=== PATIENT | male | born 1970 | race African-American/Black ===

== ENCOUNTER 2016-12-08 20:48 | Observation (INO) | payer OTHER ==
[~2016-12-08] VITALS: Ht 177.8 cm; Wt 82.6 kg
[~2016-12-08 20:48] MED LIST: AMLO5TAB2 PO; CHLO25TA PO; LACT1CAP6 PO; SIMV20TA3 PO
--- NOTE | 2016-12-08 22:36 | PHYS DOC ---
Past Medical History Past Medical History: Diverticulitis, Hypertension, Unknown Additional Past Medical Histor: Peptic ulcer Past Surgical History: Appendectomy, Other Additional Past Surgical Histo: LUMPECTOMY Alcohol Use: Heavy Drug Use: None Adult General Chief Complaint Chief Complaint: RECTAL BLEED HPI HPI Patient is a 46 year old male who presents with bleeding per rectum. Patient reports for the past 2 weeks he has had blood from his rectum 7 or 8 times per day. Has had a history of same in the past. He does have history of hemorrhoids , but says his bleeding is much more than his around from hemorrhoids. He reports generalized abdominal pain as well as "pain everywhere" related to osteoarthritis in "every joint". He has not taken anything for pain. Of note, he has been hypokalemic recently and says he is up-to-date in 3 potassium per day. Review of Systems Review of Systems Constitutional: Denies fever or chills Eyes: Denies change in visual acuity or eye pain HENT: Denies nasal congestion or sore throat Respiratory: Denies cough or shortness of breath Cardiovascular: Denies chest pain GI: Generalized abdominal pain, blood per rectum. Denies nausea, vomiting, diarrhea : Denies dysuria or hematuria Musculoskeletal: Pain in all joints Integument: Denies rash or skin lesions Neurologic: Denies headache, focal weakness or sensory changes Current Medications Current Medications Current Medications Medications (Trade) Dose Ordered Sig/Kimberli Start Time Stop Time Status Last Admin Dose Admin Famotidine (Pepcid) 20 mg 1X ONCE 12/08/16 23:00 12/08/16 23:01 DC 12/08/16 23:07 20 MG Morphine Sulfate 4 mg 1X ONCE 12/08/16 23:00 12/08/16 23:01 DC 12/08/16 23:08 4 MG Potassium Chloride (Klor-Con) 40 meq 1X ONCE 12/09/16 00:00 12/09/16 00:01 DC 12/09/16 01:37 40 MEQ Allergies Allergies Allergies Coded Allergies Type Severity Reaction Last Updated Verified adhesive Allergy Intermediate RASH 07/14/16 Yes coconut Allergy Intermediate RASH 07/14/16 Yes Physical Exam Physical Exam Constitutional: Well developed, well nourished, no acute distress, non-toxic appearance HENT: Normocephalic, atraumatic, bilateral external ears normal Eyes: EOMI, conjunctiva normal, no discharge Neck: Normal range of motion, no stridor Cardiovascular: Heart rate normal, regular rhythm, no murmur Lungs & Thorax: Bilateral breath sounds clear to auscultation Abdomen: Bowel sounds normal, soft, non-distended, mild generalized TTP without guarding or rebound Rectal: External hemorrhoid, no gross blood Skin: Warm, dry, no erythema, no rash Extremities: No obvious deformity, no edema Neurologic: Alert and oriented X 3, no gross deficits noted Current Patient Data Vital Signs Vital Signs Date Time Temp Pulse Resp B/P Pulse Ox O2 Delivery O2 Flow Rate FiO2 12/09/16 00:31 92 16 127/77 100 Room Air 12/08/16 21:00 98.4 98.4 Lab Values Laboratory Tests Test 12/08/16 22:05 12/08/16 23:00 12/09/16 00:01 Urine Collection Type Unknown Urine Color Yellow Urine Clarity Clear Urine pH 5.5 Urine Specific [place] 1.010 Urine Protein Negativemg/dL (NEG-TRACE) Urine Glucose (UA) Negativemg/dL (NEG) Urine Ketones (Stick) Negativemg/dL (NEG) Urine Blood Negative (NEG) Urine Nitrite Negative (NEG) Urine Bilirubin Negative (NEG) Urine Urobilinogen Dipstick 0.2mg/dL (0.2 mg/dL) Urine Leukocyte Esterase Negative (NEG) Urine RBC 0/HPF (0-2) Urine WBC 0/HPF (0-4) Urine Squamous Epithelial Cells Occ/LPF Urine Bacteria 0/HPF (0-FEW) Urine Mucus Slight/LPF Urine Opiates Screen Neg (NEG) Urine Methadone Screen Neg (NEG) Urine Barbiturates Neg (NEG) Urine Phencyclidine Screen Neg (NEG) Urine Amphetamine/Methamphetamine Neg (NEG) Urine Benzodiazepines Screen Neg (NEG) Urine Cocaine Screen Neg (NEG) Urine Cannabinoids Screen Neg (NEG) Urine Ethyl Alcohol Pos (NEG) White Blood Count 6.1x10^3/uL (4.0-11.0) Red Blood Count 4.06x10^6/uL (4.30-5.70) L Hemoglobin 11.1g/dL (13.0-17.5) L Hematocrit 33.4% (39.0-53.0) L Mean Corpuscular Volume 82fL (79-100) Mean Corpuscular Hemoglobin 28pg (25-35) Mean Corpuscular Hemoglobin Concent 33g/dL (31-37) Red Cell Distribution Width 14.1% (11.5-14.5) Platelet Count 291x10^3/uL (140-400) Neutrophils (%) (Auto) 41% (31-73) Lymphocytes (%) (Auto) 50% (24-48) H Monocytes (%) (Auto) 7% (0-9) Eosinophils (%) (Auto) 2% (0-3) Basophils (%) (Auto) 1% (0-3) Neutrophils # (Auto) 2.5x10^3uL (1.8-7.7) Lymphocytes # (Auto) 3.0x10^3/uL (1.0-4.8) Monocytes # (Auto) 0.4x10^3/uL (0.0-1.1) Eosinophils # (Auto) 0.1x10^3/uL (0.0-0.7) Basophils # (Auto) 0.1x10^3/uL (0.0-0.2) Sodium Level 139mmol/L (136-145) Potassium Level 2.8mmol/L (3.5-5.1) *L Chloride Level 98mmol/L (98-107) Carbon Dioxide Level 28mmol/L (21-32) Anion Gap 13 (6-14) Blood Urea Nitrogen 18mg/dL (8-26) Creatinine 1.0mg/dL (0.7-1.3) Estimated GFR (Cockcroft-Gault) 97.3 BUN/Creatinine Ratio 18 (6-20) Glucose Level 110mg/dL (70-99) H Calcium Level 8.8mg/dL (8.5-10.1) Magnesium Level 1.9mg/dL (1.8-2.4) Total Bilirubin 0.3mg/dL (0.2-1.0) Aspartate Amino Transferase (AST) 30U/L (15-37) Alanine Aminotransferase (ALT) 26U/L (16-63) Alkaline Phosphatase 42U/L (46-116) L Total Protein 7.4g/dL (6.4-8.2) Albumin 3.6g/dL (3.4-5.0) Albumin/Globulin Ratio 0.9 (1.0-1.7) L Lipase 245U/L (73-393) Ethyl Alcohol Level 152mg/dL (0-10) H Stool Occult Blood Positive (NEG) Laboratory Tests 12/08/16 23:00 Laboratory Tests 12/08/16 23:00 EKG EKG [] Radiology/Procedures Radiology/Procedures [] Course & Med Decision Making Course & Med Decision Making Pertinent Labs and Imaging studies reviewed. (See chart for details) Patient is 46-year-old male who presents with blood per rectum and pain all over. Has history of colon polyps, this may be the source of bleeding. Will check labs, UA. Pepcid and pain medicine ordered. Labs notable for anemia; hemoglobin 11.1, this is concerning because patient's baseline is around 15. Also noted to be hypokalemic. Oral potassium replacement ordered. Discussed results with patient. Discussed Dr. Black, will admit under his care for further evaluation treatment. Dragon Disclaimer Dragon Disclaimer This electronic medical record was generated, in whole or in part, using a voice recognition dictation system. Departure Departure Impression: Primary Impression: GI bleed Additional Impression: Hypokalemia Disposition: ADMITTED INPATIENT Admitting Physician: Anibal Black Condition: STABLE Referrals: ROMAIN GARRISON MD (PCP) Problem Qualifiers MELISSA LEON MD Dec 08, 2016 22:36
[2016-12-08 22:49] LABS: BILIRUBIN,URINE NEGATIVE (NEG); GLUCOSE,URINE NEGATIVE (NEG); NITRITE,URINE NEGATIVE (NEG); PH,URINE 5.5; PROTEIN,URINE NEGATIVE (NEG-TRACE); UROBILINOGEN,URINE 0.2 mg/dL (0.2 mg/dL)
[2016-12-08 22:54] LABS: BARBITURATES NEG (NEG); BENZODIAZEPINES NEG (NEG); CANNABINOIDS NEG (NEG); COCAINE NEG (NEG); METHADONE NEG (NEG); OPIATES NEG (NEG); PHENCYCLIDINE NEG (NEG)
[2016-12-08 22:55] LABS: ETHANOL, URINE POS (NEG)
[2016-12-08 22:58] LABS: BACTERIA,URINE 0 /HPF (0-FEW); RBC,URINE 0 /HPF (0-2); SQUAMOUS EPITHELIAL CELL,UR OCC /LPF; WBC,URINE 0 /HPF (0-4)
[2016-12-08] MEDS ORDERED: MORPHINE SULFATE 4 MG/ML DISP.SYRIN. IV ONE (23:00)
[2016-12-08] MEDS ORDERED: FAMOTIDINE 20 MG/2 ML VIAL IVP ONE (23:00)
[2016-12-08 23:15] LABS: BASO # 0.1 x10^3/uL (0.0-0.2); BASO % 1 % (0-3); EOS % 2 % (0-3); HEMATOCRIT 33.4 % (39.0-53.0); HEMOGLOBIN 11.1 g/dL (13.0-17.5); LYMPH % 50 % (24-48); MEAN CORPUSCULAR HEMOGLOBIN 28 pg (25-35); MEAN CORPUSCULAR HGB CONC 33 g/dL (31-37); MEAN CORPUSCULAR VOLUME 82 fL (79-100); MONO % 7 % (0-9); NEUT % 41 % (31-73); PLATELET COUNT 291 x10^3/uL (140-400); RED BLOOD COUNT 4.06 x10^6/uL (4.30-5.70); RED CELL DISTRIBUTION WIDTH 14.1 % (11.5-14.5); WHITE BLOOD COUNT 6.1 x10^3/uL (4.0-11.0)
[2016-12-08 23:32] LABS: ALBUMIN 3.6 g/dL (3.4-5.0); ALBUMIN/GLOBULIN RATIO 0.9 (1.0-1.7); CALCIUM 8.8 mg/dL (8.5-10.1); GFR 97.3; TOTAL BILIRUBIN 0.3 mg/dL (0.2-1.0); TOTAL PROTEIN 7.4 g/dL (6.4-8.2)
[2016-12-08 23:35] LABS: POTASSIUM 2.8 mmol/L (3.5-5.1)
[2016-12-09] VITALS (11 sets, daily range): BP systolic 112–155; BP diastolic 71–92
[2016-12-09] MEDS ORDERED: ONDANSETRON PF 4 MG/2 ML VIAL. IV PRN (00:45)
[2016-12-09] MEDS ORDERED: ACETAMINOPHEN 325 MG TABLET. PO PRN (00:45)
[2016-12-09 01:03] LABS: NEG OBC FOB NEG; POS OBC FOB POS
[2016-12-09] MEDS ORDERED: POTA10TA PO (03:27)
[2016-12-09] MEDS ORDERED: AMLO10TA2 PO (03:27)
[2016-12-09] MEDS ORDERED: ESCI20TA PO (03:27)
[2016-12-09] MEDS: MORPHINE SULFATE 2 MG/ML DISP.SYRIN. IV PRN ×4 (03:38→19:35)
--- NOTE | 2016-12-09 09:01 | EKG ---
[facility] [address] [place] [address] Test Date: 2016-12-09 Test Time: 08:20:22 Pat Name: SARAH CIFUENTES Department: Room: 526 1 Gender: M Laboratory Analyst: RITA : 1970 Requested By: BILL AMOR Order Number: [id number] Reading MD: Clarissa Rich Measurements Intervals [place] Rate: 82 P: 59 UT: 150 QRS: -4 QRSD: 94 T: -1 QT: 400 QTc: 471 Interpretive Statements SINUS RHYTHM LEFTWARD AXIS OTHERWISE NORMAL ECG RI6.01 Compared to ECG 07/15/2016 15:30:12 T-wave abnormality no longer present Electronically Signed On 12-10-2016 10:35:52 FISH SEINER by Clarissa Rich
--- NOTE | 2016-12-09 09:16 | PDOC2 ---
GI CONSULT Reason For Consult: GI Bleed HPI: HPI: 46 y/o AA male w/ ~16 year h/o GI bleeding w/ previous evaluation at [facility] in [place]. He reports significant h/o colon polyps w/ annual colonoscopy recommended (w/ last colonoscopy 1-2 years ago). Additionally, he has h/o PUD w / H. pylori (reports treated after last EGD 1-2 years ago), diverticulosis, and hemorrhoids. He has also had SBCE and has been advised to take iron in the past. He notes blood in his stools daily (rarely bright red, usually darker); this has been worse for 2 weeks. His reports stools look like grape juice w/ large clots. He often feels dizzty and weak when this occurs. Before passing blood, he has epigastric and BLQ discomfort w/ bloating. Denies GERD, dysphagia, n/v, hematemesis, unintentional weight loss, change in appetite, constipation, diarrhea, and NSAID use. Labs as an outpatient have reportedly shown dropping Hgb during this time. Here, labs show Hgb 11.1, K+ 2.8, Alk Phos 42, ethyl alcohol 152, and hemoccult positive stool. PMH: PMH: HTN, diverticulosis, hemorrhoids, PUD, appendectomy, benign cyst removal from left chest FH: Family History: No pertinent hx (denies GI cancers), CAD, CVA, DM Social History: Smoke: <1 pack per day ALCOHOL: other (4 "tall boy" cans of beer QOD) Drugs: None ROS: GEN: Denies fevers, chills, sweats HEENT: Denies blurred vision, sore throat CV: Denies chest pain RESP: Denies shortness of air, cough GI: Per HPI : Denies hematuria, dysuria ENDO: +weight loss (intentional) NEURO: +dizziness MSK: +weakness SKIN: Denies jaundice, pruritus VItals: Vitals: Vital Signs Date Time Temp Pulse Resp B/P Pulse Ox O2 Delivery O2 Flow Rate FiO2 12/09/16 08:52 20 95 Room Air 12/09/16 07:00 98.6 88 117/73 98.6 Labs: Labs: Laboratory Tests Test 12/08/16 22:05 12/08/16 23:00 12/09/16 00:01 Urine Collection Type Unknown Urine Color Yellow Urine Clarity Clear Urine pH 5.5 Urine Specific [place] 1.010 Urine Protein Negativemg/dL (NEG-TRACE) Urine Glucose (UA) Negativemg/dL (NEG) Urine Ketones (Stick) Negativemg/dL (NEG) Urine Blood Negative (NEG) Urine Nitrite Negative (NEG) Urine Bilirubin Negative (NEG) Urine Urobilinogen Dipstick 0.2mg/dL (0.2 mg/dL) Urine Leukocyte Esterase Negative (NEG) Urine RBC 0/HPF (0-2) Urine WBC 0/HPF (0-4) Urine Squamous Epithelial Cells Occ/LPF Urine Bacteria 0/HPF (0-FEW) Urine Mucus Slight/LPF Urine Opiates Screen Neg (NEG) Urine Methadone Screen Neg (NEG) Urine Barbiturates Neg (NEG) Urine Phencyclidine Screen Neg (NEG) Urine Amphetamine/Methamphetamine Neg (NEG) Urine Benzodiazepines Screen Neg (NEG) Urine Cocaine Screen Neg (NEG) Urine Cannabinoids Screen Neg (NEG) Urine Ethyl Alcohol Pos (NEG) White Blood Count 6.1x10^3/uL (4.0-11.0) Red Blood Count 4.06x10^6/uL (4.30-5.70) Hemoglobin 11.1g/dL (13.0-17.5) Hematocrit 33.4% (39.0-53.0) Mean Corpuscular Volume 82fL (79-100) Mean Corpuscular Hemoglobin 28pg (25-35) Mean Corpuscular Hemoglobin Concent 33g/dL (31-37) Red Cell Distribution Width 14.1% (11.5-14.5) Platelet Count 291x10^3/uL (140-400) Neutrophils (%) (Auto) 41% (31-73) Lymphocytes (%) (Auto) 50% (24-48) Monocytes (%) (Auto) 7% (0-9) Eosinophils (%) (Auto) 2% (0-3) Basophils (%) (Auto) 1% (0-3) Neutrophils # (Auto) 2.5x10^3uL (1.8-7.7) Lymphocytes # (Auto) 3.0x10^3/uL (1.0-4.8) Monocytes # (Auto) 0.4x10^3/uL (0.0-1.1) Eosinophils # (Auto) 0.1x10^3/uL (0.0-0.7) Basophils # (Auto) 0.1x10^3/uL (0.0-0.2) Sodium Level 139mmol/L (136-145) Potassium Level 2.8mmol/L (3.5-5.1) Chloride Level 98mmol/L (98-107) Carbon Dioxide Level 28mmol/L (21-32) Anion Gap 13 (6-14) Blood Urea Nitrogen 18mg/dL (8-26) Creatinine 1.0mg/dL (0.7-1.3) Estimated GFR (Cockcroft-Gault) 97.3 BUN/Creatinine Ratio 18 (6-20) Glucose Level 110mg/dL (70-99) Calcium Level 8.8mg/dL (8.5-10.1) Magnesium Level 1.9mg/dL (1.8-2.4) Total Bilirubin 0.3mg/dL (0.2-1.0) Aspartate Amino Transf (AST/SGOT) 30U/L (15-37) Alanine Aminotransferase (ALT/SGPT) 26U/L (16-63) Alkaline Phosphatase 42U/L (46-116) Total Protein 7.4g/dL (6.4-8.2) Albumin 3.6g/dL (3.4-5.0) Albumin/Globulin Ratio 0.9 (1.0-1.7) Lipase 245U/L (73-393) Ethyl Alcohol Level 152mg/dL (0-10) Stool Occult Blood Positive (NEG) Allergies: Coded Allergies: adhesive (Verified Allergy, Intermediate, RASH, 07/14/16) coconut (Verified Allergy, Intermediate, RASH, 07/14/16) Medications: Current Medications Medications (Trade) Dose Ordered Sig/Kimberli Route PRN Reason Start Time Stop Time Status Last Admin Dose Admin Famotidine (Pepcid) 20 mg 1X ONCE IVP 12/08/16 23:00 12/08/16 23:01 DC 12/08/16 23:07 Morphine Sulfate 4 mg 1X ONCE IV 12/08/16 23:00 12/08/16 23:01 DC 12/08/16 23:08 Potassium Chloride (Klor-Con) 40 meq 1X ONCE PO 12/09/16 00:00 12/09/16 00:01 DC 12/09/16 01:37 Morphine Sulfate 2 mg PRN Q2HR PRN IV SEVERE PAIN 12/09/16 00:45 12/10/16 00:44 12/09/16 08:52 Imaging: Imaging: - PE: GEN: NAD HEENT: Atraumatic, PERRL LUNGS: CTAB anteriorly HEART: RRR ABD: NABS, S/N, mild epigastric and BLQ discomfort EXTREMITY: No edema SKIN: No rashes, no jaundice NEURO/PSYCH: A & O 3 A/P: A/P: Recurrent GI bleeding -h/o for many years w/ previous eval through [facility] in [place] (EGD, colonoscopy, SBCE) -reports daily bleeding w/ worsening symptoms x 2 weeks -passes "grape juice" colored blood w/ clots H/o PUD, H. pylori -last EGD 1-2 years ago -no maintenance therapy, denies GERD symptoms, no NSAID use H/o colon polyps -apparently annual colonoscopy recommended H/o alcohol use -elevated ethyl alcohol on admission Abd discomfort, bloating -- D/w Dr. Hussein - plan for EGD this afternoon r/o upper GI source w/ possible colonoscopy after prep tomorrow if unrevealing. Will make NPO and also start PPI. EDILMA WHALEN Dec 09, 2016 09:16
[2016-12-09] MEDS ORDERED: MAGNESIUM SULFATE 4GM 100 ML IV ONE (09:30)
[2016-12-09] MEDS ORDERED: POTASSIUM CHLORIDE 20 MEQ TABLET.ER. PO ONE ×2 (09:30)
--- NOTE | 2016-12-09 09:34 | PDOC1 ---
History and Physical Date of Admission Date of Admission DATE: 12/09/16 TIME: 09:30 Identification/Chief Complaint Chief Complaint blood in stool Source Source: Chart review, Patient History of Present Illness History of Present Illness Mr. Foster, is a 46 year old male who presents with bleeding per rectum. Multiple large stools, w/ blood water looks "like grape juice" blood mixed with stool, some clots no melena, no sticky, not black or darker, blood is red per report, but also reports purple color. Symtoms for 2 weeks up to 8 times per day. Has had a history of same in the past and prior polyps and hemorrhoids, He has diffuse OA pain, neck shoulders, chest. pain 5./ Past Medical History Cardiovascular: HTN Pulmonary: No pertinent hx CENTRAL NERVOUS SYSTEM: Other GI: Diverticulosis, GI bleed Heme/Onc: No pertinent hx Hepatobiliary: No pertinent hx Psych: No pertinent hx Musculoskeletal: Other Rheumatologic: No pertinent hx Infectious disease: No pertinent hx Renal/: No pertinent hx Endocrine: No pertinent hx Past Surgical History Past Surgical History: Appendectomy, Other Family History Family History: Coronary Artery Disease, Diabetes, Stroke Social History Smoke: <1 pack per day ALCOHOL: other (4 "tall boy" cans of beer QOD) Drugs: None Current Problem List Problem List Problems Medical Problems: (1) GI bleed Status: Acute (2) Hypokalemia Status: Acute Problems: Current Medications Current Medications Current Medications Famotidine (Pepcid) 20 mg 1X ONCE IVP Last administered on 12/08/16 23:07; Start 12/08/16 at 23:00; Stop 12/08/16 at 23:01; Status DC Morphine Sulfate 4 mg 1X ONCE IV Last administered on 12/08/16 23:08; Start at 23:00; Stop 12/08/16 at 23:01; Status DC Potassium Chloride (Klor-Con) 40 meq 1X ONCE PO Last administered on 12/09/16 01:37; Start 12/09/16 at 00:00; Stop 12/09/16 at 00:01; Status DC Ondansetron HCl (Zofran) 4 mg PRN Q8HRS PRN IV NAUSEA/VOMITING; Start 12/09/16 at 00:45; Stop 12/10/16 at 00:44 Morphine Sulfate 2 mg PRN Q2HR PRN IV SEVERE PAIN Last administered on t 08:52; Start 12/09/16 at 00:45; Stop 12/10/16 at 00:44 Acetaminophen (Tylenol) 650 mg PRN Q4HRS PRN PO FEVER; Start 12/09/16 at 00:45; Stop 12/10/16 at 00:44 Active Scripts Active Simvastatin 20 Mg Tablet 1 Tab PO QHS Reported K-Tab (Potassium Chloride) 10 Meq Tablet.er 30 Meq PO DAILY Escitalopram Oxalate 20 Mg Tablet 20 Mg PO DAILY Amlodipine Besylate 10 Mg Tablet 10 Mg PO DAILY Probiotic (Lactobacillus Acidophilus) 1 Each Capsule 1 Each PO DAILY Chlorthalidone 25 Mg Tablet 50 Mg PO DAILY Allergies Allergies: Coded Allergies: adhesive (Verified Allergy, Intermediate, RASH, 07/14/16) coconut (Verified Allergy, Intermediate, RASH, 07/14/16) Physical Exam General: Alert, Oriented X3, Cooperative, No acute distress HEENT: Atraumatic, EOMI, Mucous membr. moist/pink Lungs: Clear to auscultation, Normal air movement Heart: no gallops, no murmurs Abdomen: Normal bowel sounds, Soft Rectal Exam: not examined Extremities: No clubbing, No cyanosis, No edema, Normal pulses Skin: No significant lesion Neuro: Normal tone Psych/Mental Status: Mental status NL Vitals Vitals Vital Signs Date Time Temp Pulse Resp B/P Pulse Ox O2 Delivery O2 Flow Rate FiO2 12/09/16 08:52 20 95 Room Air 12/09/16 07:00 98.6 88 117/73 98.6 Labs Labs Laboratory Tests Test 12/08/16 22:05 12/08/16 23:00 12/09/16 00:01 Urine Collection Type Unknown Urine Color Yellow Urine Clarity Clear Urine pH 5.5 Urine Specific [place] 1.010 Urine Protein Negativemg/dL (NEG-TRACE) Urine Glucose (UA) Negativemg/dL (NEG) Urine Ketones (Stick) Negativemg/dL (NEG) Urine Blood Negative (NEG) Urine Nitrite Negative (NEG) Urine Bilirubin Negative (NEG) Urine Urobilinogen Dipstick 0.2mg/dL (0.2 mg/dL) Urine Leukocyte Esterase Negative (NEG) Urine RBC 0/HPF (0-2) Urine WBC 0/HPF (0-4) Urine Squamous Epithelial Cells Occ/LPF Urine Bacteria 0/HPF (0-FEW) Urine Mucus Slight/LPF Urine Opiates Screen Neg (NEG) Urine Methadone Screen Neg (NEG) Urine Barbiturates Neg (NEG) Urine Phencyclidine Screen Neg (NEG) Urine Amphetamine/Methamphetamine Neg (NEG) Urine Benzodiazepines Screen Neg (NEG) Urine Cocaine Screen Neg (NEG) Urine Cannabinoids Screen Neg (NEG) Urine Ethyl Alcohol Pos (NEG) White Blood Count 6.1x10^3/uL (4.0-11.0) Red Blood Count 4.06x10^6/uL (4.30-5.70) Hemoglobin 11.1g/dL (13.0-17.5) Hematocrit 33.4% (39.0-53.0) Mean Corpuscular Volume 82fL (79-100) Mean Corpuscular Hemoglobin 28pg (25-35) Mean Corpuscular Hemoglobin Concent 33g/dL (31-37) Red Cell Distribution Width 14.1% (11.5-14.5) Platelet Count 291x10^3/uL (140-400) Neutrophils (%) (Auto) 41% (31-73) Lymphocytes (%) (Auto) 50% (24-48) Monocytes (%) (Auto) 7% (0-9) Eosinophils (%) (Auto) 2% (0-3) Basophils (%) (Auto) 1% (0-3) Neutrophils # (Auto) 2.5x10^3uL (1.8-7.7) Lymphocytes # (Auto) 3.0x10^3/uL (1.0-4.8) Monocytes # (Auto) 0.4x10^3/uL (0.0-1.1) Eosinophils # (Auto) 0.1x10^3/uL (0.0-0.7) Basophils # (Auto) 0.1x10^3/uL (0.0-0.2) Sodium Level 139mmol/L (136-145) Potassium Level 2.8mmol/L (3.5-5.1) Chloride Level 98mmol/L (98-107) Carbon Dioxide Level 28mmol/L (21-32) Anion Gap 13 (6-14) Blood Urea Nitrogen 18mg/dL (8-26) Creatinine 1.0mg/dL (0.7-1.3) Estimated GFR (Cockcroft-Gault) 97.3 BUN/Creatinine Ratio 18 (6-20) Glucose Level 110mg/dL (70-99) Calcium Level 8.8mg/dL (8.5-10.1) Magnesium Level 1.9mg/dL (1.8-2.4) Total Bilirubin 0.3mg/dL (0.2-1.0) Aspartate Amino Transf (AST/SGOT) 30U/L (15-37) Alanine Aminotransferase (ALT/SGPT) 26U/L (16-63) Alkaline Phosphatase 42U/L (46-116) Total Protein 7.4g/dL (6.4-8.2) Albumin 3.6g/dL (3.4-5.0) Albumin/Globulin Ratio 0.9 (1.0-1.7) Lipase 245U/L (73-393) Ethyl Alcohol Level 152mg/dL (0-10) Stool Occult Blood Positive (NEG) Laboratory Tests Test 12/08/16 22:05 12/08/16 23:00 12/09/16 00:01 Urine Collection Type Unknown Urine Color Yellow Urine Clarity Clear Urine pH 5.5 Urine Specific [place] 1.010 Urine Protein Negativemg/dL (NEG-TRACE) Urine Glucose (UA) Negativemg/dL (NEG) Urine Ketones (Stick) Negativemg/dL (NEG) Urine Blood Negative (NEG) Urine Nitrite Negative (NEG) Urine Bilirubin Negative (NEG) Urine Urobilinogen Dipstick 0.2mg/dL (0.2 mg/dL) Urine Leukocyte Esterase Negative (NEG) Urine RBC 0/HPF (0-2) Urine WBC 0/HPF (0-4) Urine Squamous Epithelial Cells Occ/LPF Urine Bacteria 0/HPF (0-FEW) Urine Mucus Slight/LPF Urine Opiates Screen Neg (NEG) Urine Methadone Screen Neg (NEG) Urine Barbiturates Neg (NEG) Urine Phencyclidine Screen Neg (NEG) Urine Amphetamine/Methamphetamine Neg (NEG) Urine Benzodiazepines Screen Neg (NEG) Urine Cocaine Screen Neg (NEG) Urine Cannabinoids Screen Neg (NEG) Urine Ethyl Alcohol Pos (NEG) White Blood Count 6.1x10^3/uL (4.0-11.0) Red Blood Count 4.06x10^6/uL (4.30-5.70) Hemoglobin 11.1g/dL (13.0-17.5) Hematocrit 33.4% (39.0-53.0) Mean Corpuscular Volume 82fL (79-100) Mean Corpuscular Hemoglobin 28pg (25-35) Mean Corpuscular Hemoglobin Concent 33g/dL (31-37) Red Cell Distribution Width 14.1% (11.5-14.5) Platelet Count 291x10^3/uL (140-400) Neutrophils (%) (Auto) 41% (31-73) Lymphocytes (%) (Auto) 50% (24-48) Monocytes (%) (Auto) 7% (0-9) Eosinophils (%) (Auto) 2% (0-3) Basophils (%) (Auto) 1% (0-3) Neutrophils # (Auto) 2.5x10^3uL (1.8-7.7) Lymphocytes # (Auto) 3.0x10^3/uL (1.0-4.8) Monocytes # (Auto) 0.4x10^3/uL (0.0-1.1) Eosinophils # (Auto) 0.1x10^3/uL (0.0-0.7) Basophils # (Auto) 0.1x10^3/uL (0.0-0.2) Sodium Level 139mmol/L (136-145) Potassium Level 2.8mmol/L (3.5-5.1) Chloride Level 98mmol/L (98-107) Carbon Dioxide Level 28mmol/L (21-32) Anion Gap 13 (6-14) Blood Urea Nitrogen 18mg/dL (8-26) Creatinine 1.0mg/dL (0.7-1.3) Estimated GFR (Cockcroft-Gault) 97.3 BUN/Creatinine Ratio 18 (6-20) Glucose Level 110mg/dL (70-99) Calcium Level 8.8mg/dL (8.5-10.1) Magnesium Level 1.9mg/dL (1.8-2.4) Total Bilirubin 0.3mg/dL (0.2-1.0) Aspartate Amino Transf (AST/SGOT) 30U/L (15-37) Alanine Aminotransferase (ALT/SGPT) 26U/L (16-63) Alkaline Phosphatase 42U/L (46-116) Total Protein 7.4g/dL (6.4-8.2) Albumin 3.6g/dL (3.4-5.0) Albumin/Globulin Ratio 0.9 (1.0-1.7) Lipase 245U/L (73-393) Ethyl Alcohol Level 152mg/dL (0-10) Stool Occult Blood Positive (NEG) VTE Prophylaxis Ordered VTE Prophylaxis Devices: Yes VTE Pharmacological Prophylaxi: Contraindicated Assessment/Plan Assessment/Plan blood loss per rectum bright red blood in stool, Hx colon polyps Hgb Drop from 15.5 to 11.1 hypokalemia, replace mag and K EtOH use, intox on admit GI consult, consider colonoscopy Neck pain, joint pain, he has seen Dr. Huang previously, and would now like epidural if possible tobaccoism, cessation offered DYLON SHAH MD Dec 09, 2016 09:34
[2016-12-09] MEDS: PANTOPRAZOLE IV PUSH 40 MG VIAL. IVP SCH (11:16)
[2016-12-09] MEDS ORDERED: PROPOFOL 40 ML IV ONE (16:58)
[2016-12-09] MEDS ORDERED: LIDOCAINE 2% PF Vial for OR 5 ML VIAL. ONE (16:58)
--- NOTE | 2016-12-09 17:25 | PDOC4 ---
Operative Note Operative Note EGD with clip/thermal therapy Meds propofol 220 mg iv Pre-op dx acute blood loss anemia/hx colon polyps/melena Post-op dx mild esophagitis gastric cardiac ulcer/dielufuoy lesion S/p cclip/gold probe thermal therapy Plan advance diet serial cbcs o/p meckels scan and colonoscopy with history of polyps if bleeding resumes JOSE TAYLOR MD Dec 09, 2016 17:25
--- NOTE | 2016-12-10 | ACF ---
Admission Forms Criteria GASTROINTESTINAL BLEEDING Clinical Indications for Inpatient Care (Place 'X' for any and all applicable criteria): Ongoing inpatient care may be indicated for gastrointestinal bleeding with ANY ONE of the following (4)(20)(21)(22)(23)(24): [X]I. Active bleeding (eg, fresh voluminous blood in emesis or nasogastric aspirate, or per rectum) [ ]II. Hemodynamic instability [ ]III. Anticoagulation therapy or coagulopathy ((eg, advanced liver disease, irreversible anticoagulation) [ ]IV. Ischemic colitis (22) [ ]V. Endoscopy showing arterial bleeding, adherent clot, nonbleeding visible vessel, varices, flat red spots, ulcer size greater than 2 cm, or portal hypertensive gastropathy [ ]. High-risk low platelet count [ ]VII. Anemia requiring inpatient care as indicated by ANY ONE of the following a)[ ] Cognitive impairment b)[ ] Syncope c)[ ] Heart failure d)[ ] Chest pain e)[ ] Dyspnea f)[ ] Other findings suggesting inadequate perfusion (eg, peripheral or myocardial ischemia, end organ dysfunction) [ ]VIII. High-risk low platelet count [ ]IX. Suspected variceal cause of bleeding as indicated by ANY ONE of the following(27)(28): a)[ ] Known varices b)[ ] Hepatomegaly or splenomegaly c)[ ] Ascites d)[ ] Jaundice or scleral icterus e)[ ] History of liver disease (eg, cirrhosis) f)[ ] Physical findings of portal hypertension (eg, caput medusa) g)[ ] Comorbid disorder indicating risk for portal vein thrombosis (eg , abdominal surgery, sepsis, shock, exchange transfusion, prior umbilical vein catheterization) Extended stay may be needed until ALL of the following are present(20)(38)(47): [ ]a) Hemodynamic stability [ ]b) No evidence of active bleeding (eg, stable Hematocrit) [ ]c) Platelet count, prothrombin time, and partial thromboplastin time acceptable for next level of care [ ]d) Surgical or other acute intervention not needed [ ]e) Oral hydration and diet tolerated The original [employer] content created by Keeley Head has been revised. The portions of the content which have been revised are identified through the use of italic text or in bold, and Keeley Head has neither reviewed nor approved the modified material. All other unmodified content is copyright [facility]. Please see references footnoted in the original [facility] edition 2016 Admission Criteria Met?: Yes MELISSA AGUERO Dec 10, 2016 00:00
[2016-12-10 03:00] VITALS: BP 131/86
[2016-12-10 04:23] LABS: BASO % 1 % (0-3); EOS % 3 % (0-3); HEMATOCRIT 33.2 % (39.0-53.0); HEMOGLOBIN 10.9 g/dL (13.0-17.5); LYMPH # 2.1 x10^3/uL (1.0-4.8); LYMPH % 48 % (24-48); MEAN CORPUSCULAR HEMOGLOBIN 27 pg (25-35); MEAN CORPUSCULAR HGB CONC 33 g/dL (31-37); MEAN CORPUSCULAR VOLUME 84 fL (79-100); MONO % 9 % (0-9); NEUT % 39 % (31-73); PLATELET COUNT 281 x10^3/uL (140-400); RED BLOOD COUNT 3.97 x10^6/uL (4.30-5.70); RED CELL DISTRIBUTION WIDTH 14.2 % (11.5-14.5); WHITE BLOOD COUNT 4.4 x10^3/uL (4.0-11.0)
[2016-12-10 04:35] LABS: CALCIUM 8.5 mg/dL (8.5-10.1); GFR 97.3
[2016-12-10 04:37] LABS: POTASSIUM 2.9 mmol/L (3.5-5.1)
[2016-12-10] MEDS ORDERED: POTASSIUM CHLORIDE 20 MEQ TABLET.ER. PO ONE ×2 (05:00→13:30)
[2016-12-10] MEDS: OXYCODONE IR 5 MG TABLET. PO PRN ×2 (06:05→13:48)
[2016-12-10 07:00] VITALS: BP 128/87
[2016-12-10] MEDS ORDERED: POTASSIUM CHLORIDE 20 MEQ TABLET.ER. PO SCH (08:00)
--- NOTE | 2016-12-10 10:28 | PDOC ---
Subjective: Subjective: Feeling better w/o further bleeding. Took a shower. Tolerating reg diet. No abd bloating. Wants to DC. Some dizziness attributed to headache from chronic neck pain. Objective: Vital Signs: Vital Signs Date Time Temp Pulse Resp B/P Pulse Ox O2 Delivery O2 Flow Rate FiO2 12/10/16 07:07 95 Room Air 2.0 12/10/16 07:00 97.7 70 16 128/87 97.7 Labs: Laboratory Tests Test 12/10/16 03:38 White Blood Count 4.4x10^3/uL Red Blood Count 3.97x10^6/uL Hemoglobin 10.9g/dL Hematocrit 33.2% Mean Corpuscular Volume 84fL Mean Corpuscular Hemoglobin 27pg Mean Corpuscular Hemoglobin Concent 33g/dL Red Cell Distribution Width 14.2% Platelet Count 281x10^3/uL Neutrophils (%) (Auto) 39% Lymphocytes (%) (Auto) 48% Monocytes (%) (Auto) 9% Eosinophils (%) (Auto) 3% Basophils (%) (Auto) 1% Neutrophils # (Auto) 1.7x10^3uL Lymphocytes # (Auto) 2.1x10^3/uL Monocytes # (Auto) 0.4x10^3/uL Eosinophils # (Auto) 0.1x10^3/uL Basophils # (Auto) 0.0x10^3/uL Sodium Level 136mmol/L Potassium Level 2.9mmol/L Chloride Level 98mmol/L Carbon Dioxide Level 31mmol/L Anion Gap 7 Blood Urea Nitrogen 13mg/dL Creatinine 1.0mg/dL Estimated GFR (Cockcroft-Gault) 97.3 Glucose Level 81mg/dL Calcium Level 8.5mg/dL Imaging: Colonoscopy 12/09/16: mild esophagitis, gastric cardiac ulcer/Dieulafoy lesion s/ p clip/gold probe thermal therapy PE: GEN: NAD LUNGS: clear anteriorly HEART: RRR ABD: NABS, S/ND/NT NEURO/PSYCH: A & O 3 A/P: Recurrent GI bleeding -h/o for many years w/ previous eval through [facility] in [place] (EGD, colonoscopy, SBCE) -says h/o H. pylori, PUD, many colon polyps; EGD yesterday w/ mild esophagitis, gastric cardia ulcer/Dieulafoy lesion s/p clip/gold probe thermal therapy -passes "grape juice" colored blood w/ clots - no recurrence here w/ stable Hgb Abd discomfort, bloating - resolved Dizziness w/ headache, chronic neck pain -per primary -- Improved w/o recurrent bleeding. He would like to DC and pursue further evaluation as outpatient (colonoscopy and /or Meckel's scan) if symptoms recur. EDILMA WHALEN Dec 10, 2016 10:28
[2016-12-10] MEDS: PANTOPRAZOLE IV PUSH 40 MG VIAL. IVP SCH (10:38)
[2016-12-10 11:31] VITALS: BP 131/86
[2016-12-10] MEDS ORDERED: POTA10TA PO (13:00)
[2016-12-10] MEDS ORDERED: MAGNESIUM SULFATE 4GM 100 ML IV ONE (13:30)
[2016-12-10 15:20] VITALS: BP 119/79
== END 2016-12-10 18:05 | disposition home or self-care (01) ==
LOC: ER 20:48 → 5 NORTH 12-09 00:38
PROVIDERS: ADMIT Internal Medicine; ATTEND Internal Medicine
DX: K92.1 Melena (principal); D62 Acute posthemorrhagic anemia; E87.6 Hypokalemia; G89.29 Other chronic pain; I10 Essential (primary) hypertension; M19.90 Unspecified osteoarthritis, unspecified site; Z86.010 Personal history of colon polyps; Z90.49 Acquired absence of other specified parts of digestive tract; Z87.19 Personal history of other diseases of the digestive system
CPT/HCPCS: 36415; 43257; 80048; 80053; 81001; 82274; 83690; 83735; 85027; 93005; 96365; 96366; 96375; 96376; 99285; C9113; G0378; G0379; G0480; G0481; J2270; J2704; J3475; S0028

== ENCOUNTER → 2016-12-24 | Outpatient (CLI) | payer OTHER ==
[2016-12-10 15:20] VITALS: BP 119/79
[~2016-12-24] MED LIST changes: +AMLO10TA2 PO; +ESCI20TA PO; +IOHEXOL 180 MG/ML 10 ML VIAL. ONE; +POTA10TA PO; +methylPREDNISolone ACETATE 40 MG/ML VIAL. ONE; +methylPREDNISolone ACETATE 80 MG/ML VIAL. ONE
--- NOTE | 2016-12-25 04:18 | PAIN ---
DATE OF SERVICE: 12/24/2016 CHIEF COMPLAINT: Neck and left upper extremity pain. HISTORY OF PRESENT ILLNESS: This is a 46-year-old male who presents with history of pain in the base of the neck, left shoulder for about 20 years, worse over the past 6 months or so. The patient reports it has been increasing. He has seen orthopedic doctor as well as a director music and has not had any treatments performed to this point or medications given by his report. The patient reports that the pain in the base of the neck and left shoulder is getting much worse, radiating into the arm and hand with sharp shooting pains as well as to have tingling sensation into the hand as well, involving the thumb and first 2 fingers on the left side. The patient reports his arm is much weaker than he usually is, gets more fatigued easily with repetitive motions and used ____ strong. No symptoms of pain in the right arm. The patient also reports abdominal pain, bilateral knee pain, ankle pain and joint pain and overall with diagnosis by his report of osteoarthritis which he reports runs in his family. The patient reports no loss of function in the left arm, but significant pain and tenderness awakens him from sleep occasionally, but not every night, does not affect his bowel or bladder control, but does affect his ability to walk, especially with using things or carrying things with his left upper extremity. The patient reports the pain is constant, sharp, stabbing, throbbing, aching, worse over the past 4 years, much worse over the past 6 months without any specific recent injury, did have an accident last year and had an injury to his left shoulder in the accident he reports, but I have no supporting evidence of scans or other diagnostic studies at time of this dictation. The patient rates his disability rating from 0 to 10, 10 being the worst, 10 in all categories, except life support activities, which is in 8. The patient is taking Tylenol and vzjt-qpu-[id number] medications without significant improvement in the pain. The patient did have chiropractic treatment, which he is currently undergoing with his neck and his low back and exercises that he does on his own as well as stretching and strengthening over the last few months as well. The patient have a CT scan of the cervical spine showing mild diffuse narrowing of the cervical spinal canal on developmental basis, mild spinal stenosis at C4-C5 and C6-C7 with disk osteophyte at C6-C7, greater on the right and likely mild to moderate dorsal left and mild dorsal right neural foraminal compromise. The scan was from 07/15/2016. PAST MEDICAL HISTORY: Shortness of breath, hypertension, arthritis, chest pain, cigarette smoking, headaches, arthritis, osteoarthritis, and blood in stools. PREVIOUS SURGERY: Include appendectomy in 2012 and left side lumpectomy in the past as well. CURRENT MEDICATIONS: Include simvastatin, potassium chlorthalidone, amlodipine and medication for anxiety is not sure of the name. ALLERGIES: THE PATIENT IS ALLERGIC TO SOME ADHESIVES ON TAPE, BUT NO MEDICATIONS THAT HE IS AWARE OF. FAMILY HISTORY: Significant for arthritis, heart disease, diabetes, and cancer. SOCIAL HISTORY: The patient smokes about 5 cigarettes a day, has for 20 years, continues to smoke, drinks 3-5 alcoholic drinks daily by his report. He is and lives with his spouse and 2 children at home and lives locally. REVIEW OF SYSTEMS: The patient's review of systems is positive for those items mentioned in history of present illness. All systems reviewed and otherwise negative. It is complete, full and well documented in the patient's chart. PHYSICAL EXAMINATION: VITAL SIGNS: Today, the patient's blood pressure is 146/96, pulse 88, respirations 18, temperature 98.0 degrees Fahrenheit, height 5 feet 10 inches, and weight 194 pounds. GENERAL: The patient is awake, alert, oriented, appropriate, very pleasant demeanor. HEENT: Head shows normocephalic and atraumatic. Extraocular movements are intact and symmetrical. Oral cavity shows mucous membranes moist and pink. Dentition is intact. NECK: Shows anterior throat supple without palpable lymphadenopathy noted. Swallow reflex is symmetrical. CHEST: Shows normal on inspection. Breath sounds clear to auscultation bilaterally. HEART: Shows S1 and S2 clear. No murmurs are auscultated. ABDOMEN: Soft, nontender, and nondistended. No palpable organomegaly is noted. No rebound or guarding demonstrated. BACK: The patient's back shows spine grossly midline. Normal appearing cervical lordotic curvature, thoracic kyphotic curvature, and lumbar lordotic curvature. Cervical paraspinous musculature shows symmetrical on inspection with palpation is moderately tender in the inferior and middle aspect of the cervical paraspinous muscles diffusely without radiation, but is symmetrical without trigger points. The patient has no tenderness over the spinous processes themselves. Tenderness is extending into the left superior medial trapezius and lateral trapezius on the left side as well, but without atrophy, hypertrophy or asymmetry and without trigger points. Muscle girth is normal on palpation and firm bilaterally. The patient shows good rotational motion of cervical spine with some minor tenderness with extension and left lateral rotation, but not with forward flexion or right lateral rotation which is performed fully past 45 close to 90 degrees right and left as well. Upper extremity showed deep tendon reflexes at 2+ in the biceps and triceps tendons, are equal. Motor exam is approximately 5/5 with right insurance account executive strength, biceps and triceps flexion 4/5 on the left with these maneuvers. Peripheral pulses are 2+ in radial distribution. No peripheral edema is noted. No clubbing, no cyanosis. Upper extremities are warm and dry to touch, equal in color and appearance. Shoulder shrug is strong and intact as is abduction of shoulder to 90 degrees without loss of strength on resistance. There was some pain reported in the base of the neck on the left side with resistance ____ but without loss of strength. IMPRESSION: 1. This is a 46-year-old male with long history of neck, upper back, left upper extremity pain in a radicular fashion, worse over the past 6 months or so[address] 2[address] CT scan of cervical spine as noted. 3. History of arthritis. 4. Hypertension. PLAN: Options were discussed with the patient including conservative medical management with physical therapy, interventional techniques and he would like to pursue on interventional techniques. We discussed a cervical epidural steroid injection using description as well as anatomical models to describe the procedure. Risks were then discussed including, but not limited to bleeding, infection, possibility of epidural hematoma, subsequent neurologic compromise, dural puncture, headaches, spinal cord and/or nerve damage, side effects of steroid medication and poor results regarding pain control. The patient understands and wishes to proceed. The patient will return to clinic in approximately 2 weeks for followup, was counseled on return appointment, activity level, and side effects to be aware of. DIAGNOSES: Cervical radiculopathy with cervical degenerative disk disease. PROCEDURE: Cervical epidural steroid injection using translaminar approach at C6-C7 level using C-arm fluoroscopic guidance under sterile prep and aching local anesthetic. MEDICATIONS INJECTED: Depo-Medrol 120 mg plus 10 mL of preservative free normal saline and 2 of Isovue for contrast. CONDITION AT DISCHARGE: Stable. The patient tolerated procedure well, had no complications. RUBY LAWLER MD DR: JEAN-CLAUDE/meghan JOB#: [id number] / [id number]
== END | disposition home or self-care (01) ==
LOC: PNCL 08:29
PROVIDERS: ATTEND Anesthesiology
DX: M50.123 Cervical disc disorder at C6-C7 level with radiculopathy (principal); I10 Essential (primary) hypertension; M19.90 Unspecified osteoarthritis, unspecified site; F17.210 Nicotine dependence, cigarettes, uncomplicated; K21.9 Gastro-esophageal reflux disease without esophagitis; F41.9 Anxiety disorder, unspecified; E78.00 Pure hypercholesterolemia, unspecified; Z98.890 Other specified postprocedural states; Z83.3 Family history of diabetes mellitus; Z72.89 Other problems related to lifestyle; Z87.39 Personal history of other diseases of the musculoskeletal system and connective tissue
CPT/HCPCS: 62321; J1030; J1040

== ENCOUNTER → 2017-01-07 | Outpatient (CLI) | payer OTHER ==
[2016-12-10 15:20] VITALS: BP 119/79
--- NOTE | 2017-01-08 04:18 | PAIN ---
DATE OF SERVICE: 01/07/2017 DIAGNOSES: Cervical radiculopathy with cervical degenerative disk disease. HISTORY OF PRESENT ILLNESS: The patient is a 46-year-old male who returns for followup status post cervical epidural steroid injection x 1. The patient reports only about 10% improvement, still some pain in the base of the neck, shoulders, and upper extremities with weakness and tingling in the arms bilaterally. The patient reports no new motor or sensory deficits, however, but only minimal decrease in pain after the injection. The patient reports pain 8 on a scale of 10. Otherwise no new motor or sensory changes or other complaints. PHYSICAL EXAMINATION: VITAL SIGNS: Today, his blood pressure shows 146/100, pulse 90, respirations 18, temperature is 98.3 degrees fahrenheit, height is 5 feet 10 inches, weighs 185 pounds. GENERAL: The patient is awake, alert, oriented, appropriate, very pleasant demeanor. HEENT: Head shows normocephalic, atraumatic. Extraocular movements are intact and symmetrical. Oral cavity shows mucous membranes moist and pink. Dentition is intact. NECK: Shows anterior throat supple without palpable lymphadenopathy noted. Swallow reflex is symmetrical. CHEST: Shows normal on inspection. Breath sounds clear to auscultation bilaterally. HEART: Shows S1 and S2 clear. ABDOMEN: Soft, nontender, and nondistended. No palpable organomegaly. There is no rebound or guarding demonstrated. BACK: Shows spine grossly midline. Cervical paraspinous musculature shows symmetrical with inspection. On palpation shows some mykw-jr-vojhfkxi tenderness with palpation in the middle and lower cervical paraspinous musculature bilaterally, also some tenderness in the superior and lateral trapezius and medial trapezius, more on the left than the right. EXTREMITIES: The patient's upper extremities show deep tendon reflexes 2+ in the biceps and triceps tendons. Motor exam is approximately 5/5 with right rooms director and 4/5 on the left rooms director strength, otherwise symmetrical. Peripheral pulses are 2+ radial in distribution. Options were discussed with the patient and the patient's old chart was reviewed and his current medication regimen updated. Current review of systems updated today as well. We will proceed with a second cervical epidural steroid injection today with fluoroscopic guidance. Risks were again discussed including, but not limited to bleeding, infection, possibility of epidural hematoma, subsequent neurologic compromise, dural puncture, headaches, spinal cord and/or nerve damage, side effects of steroid medication and poor results regarding pain control. The patient understands and wishes to proceed. The patient will return to clinic in approximately 2 weeks for followup, counseled on return appointment, activity level and side effects to be aware of. RUBY LAWLER MD DR: JEAN-CLAUDE/meghan JOB#: [id number] / [id number]
--- NOTE | 2017-01-20 09:41 | PAIN ---
DATE OF SERVICE: 01/07/2017 ADDENDUM PROCEDURE NOTE PREOPERATIVE DIAGNOSIS: Cervical radiculopathy with cervical degenerative disk disease. PROCEDURE: Cervical epidural steroid injection, translaminar approach at C6-C7 level using C-arm fluoroscopic guidance under sterile prep and drape using local anesthetic. MEDICATIONS INJECTED: 120 mg of Depo-Medrol plus 5 mL preservative-free normal saline, 2 mL of Isovue contrast. CONDITION AT DISCHARGE: Stable. The patient tolerated the procedure well, had no complications. RUBY LAWLER MD DR: JEAN-CLAUDE/meghan JOB#: [id number] / [id number]
== END | disposition home or self-care (01) ==
LOC: PNCL 10:01
PROVIDERS: ATTEND Anesthesiology
DX: M50.123 Cervical disc disorder at C6-C7 level with radiculopathy (principal); E78.00 Pure hypercholesterolemia, unspecified; I10 Essential (primary) hypertension; K21.9 Gastro-esophageal reflux disease without esophagitis; F32.9 Major depressive disorder, single episode, unspecified; Z87.39 Personal history of other diseases of the musculoskeletal system and connective tissue
CPT/HCPCS: 62321; J1030; J1040

== ENCOUNTER → 2017-01-21 | Outpatient (CLI) | payer OTHER ==
--- NOTE | 2017-01-22 05:31 | PAIN ---
DATE OF SERVICE: 01/21/2017 PROGRESS NOTE FOR PAIN CLINIC DIAGNOSIS: Cervical radiculopathy with cervical degenerative disk disease. HISTORY OF PRESENT ILLNESS: The patient is a 46-year-old male who returns for followup status post cervical epidural steroid injections x 2. The patient reports only about 10-20% improvement in the neck and left upper extremity, which returns after about a week following the injections from the last 2 injections. The patient reports still significant pain in the base of the neck, left shoulder and upper extremity with some numbness and pain to the touch on his forearm, mostly in the anterior aspect into the hand as well involving most all of the fingers. The patient reports his pain is a 4 on a scale of 10 currently, but it can be as high as a 7 or an 8 with activity, changing positions, raising his arm over his head on his left side or with repetitive motion with his neck or his left upper extremity. The patient reports no new loss of motor function or deficits, but still significant pain impeding his daily activities significantly after 2 injections. The patient reports no other complaints. PHYSICAL EXAMINATION: VITAL SIGNS: The patient's blood pressure is 145/95, pulse 81, respirations 18, temperature 98.1 degrees Fahrenheit. Height is 5 feet 10 inches, weight is 183 pounds. GENERAL: The patient is awake, alert, oriented, appropriate, has a very pleasant demeanor. HEENT: Shows normocephalic, atraumatic. Extraocular movements are intact, symmetrical. Oral cavity, mucous membranes are moist and pink. Dentition is intact. NECK: Shows anterior throat supple without palpable lymphadenopathy noted. Swallow reflex is symmetrical. BACK: Posterior cervical musculature shows some mild tenderness with palpation in the low cervical paraspinous musculature as well as the superior, medial and lateral trapezius, also into the upper thoracic distribution in the rhomboid musculature, very firm and tender with some moderate tenderness with palpation, but no radiation. Upper extremities show deep tendon reflexes at 2+ in the biceps and triceps tendons. Motor exam is approximately 5/5 on the right radio time salesperson strength and 4/5 on the left. Biceps and triceps flexion likewise 4/5 left, 5/5 on the right. Peripheral pulses are 2+ in the radial distribution bilaterally. CHEST: Shows normal on inspection. Breath sounds clear to auscultation bilaterally. HEART: Shows S1 and S2 clear. No murmurs are auscultated. ABDOMEN: Soft, nontender, nondistended. No palpable organomegaly is noted. No rebound or guarding demonstrated. PLAN: Options were discussed with the patient and the patient's old chart was reviewed as was his current medication regimen and updated. Current review of systems updated today as well and we will proceed with a third cervical epidural steroid injection in the series with fluoroscopic guidance. Risks were again discussed including, but not limited to bleeding, infection, possibility of epidural hematoma, subsequent neurological compromise, dural punctures, headaches, spinal cord and/or nerve damage, side effects of steroid medication and poor results regarding pain control. The patient understands and wishes to proceed. The patient will return to clinic in approximately 2 weeks or as necessary. It is the third injection in a series of 3. We did discuss potential neurosurgical consultation if the pain keeps returning after the third injection today. The patient will check with his primary care physician and would like to get her opinion as to possible surgical referrals next if not significantly improved. DIAGNOSIS: Cervical radiculopathy with cervical degenerative disk disease. PROCEDURE: Cervical epidural steroid injection in a translaminar approach at the C6-C7 level using C-arm fluoroscopic guidance under sterile prep and drape using local anesthetic. MEDICATIONS INJECTED: 120 mg Depo-Medrol plus 5 mL of preservative-free normal saline and 2 mL of Isovue for contrast. CONDITION AT DISCHARGE: Stable. The patient tolerated the procedure well, had no complications. RUBY LAWLER MD DR: JEAN-CLAUDE/meghan JOB#: [id number] / [id number] ROMAIN Paz MD
== END | disposition home or self-care (01) ==
LOC: PNCL 09:24
PROVIDERS: ATTEND Anesthesiology
DX: M50.123 Cervical disc disorder at C6-C7 level with radiculopathy (principal); E78.00 Pure hypercholesterolemia, unspecified; I10 Essential (primary) hypertension; K21.9 Gastro-esophageal reflux disease without esophagitis; F32.9 Major depressive disorder, single episode, unspecified; Z72.89 Other problems related to lifestyle
CPT/HCPCS: 62321; J1030; J1040; 62320

== ENCOUNTER → 2018-08-20 | Outpatient (CLI) | payer OTHER ==
[~2018-08-20] MED LIST changes: -AMLO10TA2 PO; +AMLO10TA6 PO; -AMLO5TAB2 PO; +AMLO5TAB7 PO; -ESCI20TA PO; +ESCITALOPRAM OX20 MG PO; -IOHEXOL 180 MG/ML 10 ML VIAL. ONE; -methylPREDNISolone ACETATE 40 MG/ML VIAL. ONE; -methylPREDNISolone ACETATE 80 MG/ML VIAL. ONE
--- NOTE | 2018-08-20 15:20 | EEG ---
DATE OF SERVICE: 08/20/2018 EEG NUMBER: [id number]. OBJECTIVE: The patient is a 47-year-old male with an episode of prolonged syncope. DESCRIPTION OF PROCEDURE: This is a digital study. Electrodes are placed according to the international 10-20 system. Bipolar and referential montages are available. Activation procedures typically include hyperventilation and intermittent photic stimulation. INTERPRETATION: The waking background consists of 9-10 Hz, 50-100 microvolt activity, symmetrically distributed over parietooccipital regions and reactive to eye opening. Hyperventilation and intermittent photic stimulation are noncontributory. Stage 2 sleep was achieved with normal electroencephalogram patterns. IMPRESSION: This electroencephalogram with the patient awake and asleep is within normal limits. There is no focal, paroxysmal, or epileptiform activity. Thank you for letting us help with the patient's care. BOB GRAY MD DR: BORIS/meghan JOB#: [id number] / [id number] ROMAIN Paz MD
== END | disposition home or self-care (01) ==
LOC: RT 09:02
PROVIDERS: ATTEND Psychiatry & Neurology Neurology with Special Qualifications in Child Neurology
DX: R55 Syncope and collapse (principal)
CPT/HCPCS: 95816

== ENCOUNTER 2019-06-12 14:01 | Emergency (ER) | payer OTHER ==
[~2019-06-12] VITALS: Ht 177.8 cm; Wt 83.5 kg
[~2019-06-12 14:01] MED LIST changes: -AMLO10TA6 PO; +AMLO10TA8 PO; +AMLO5TAB10 PO; -AMLO5TAB7 PO; -CHLO25TA PO; +CHLO25TA10 PO
[2019-06-12] MEDS ORDERED: FAMOTIDINE 20 MG/2 ML VIAL IVP ONE (15:15)
[2019-06-12] MEDS ORDERED: IV NORMAL SALINE 1000ML BAG 1,000 ML IV ONE (15:15)
[2019-06-12 15:21] LABS: BASO # 0.1 x10^3/uL (0.0-0.2); BASO % 1 % (0-3); EOS # 0.1 x10^3/uL (0.0-0.7); EOS % 1 % (0-3); HEMATOCRIT 39.5 % (39.0-53.0); HEMOGLOBIN 13.4 g/dL (13.0-17.5); LYMPH # 1.3 x10^3/uL (1.0-4.8); LYMPH % 13 % (24-48); MEAN CORPUSCULAR HEMOGLOBIN 27 pg (25-35); MEAN CORPUSCULAR HGB CONC 34 g/dL (31-37); MEAN CORPUSCULAR VOLUME 80 fL (79-100); MONO % 10 % (0-9); NEUT # 7.6 x10^3/uL (1.8-7.7); NEUT % 76 % (31-73); PLATELET COUNT 481 x10^3/uL (140-400); RED BLOOD COUNT 4.94 x10^6/uL (4.30-5.70); RED CELL DISTRIBUTION WIDTH 14.1 % (11.5-14.5)
[2019-06-12 15:39] LABS: ALBUMIN 3.2 g/dL (3.4-5.0); ALBUMIN/GLOBULIN RATIO 0.6 (1.0-1.7); CALCIUM 9.5 mg/dL (8.5-10.1); CREATININE 1.3 mg/dL (0.7-1.3); GFR 71.3; TOTAL BILIRUBIN 0.7 mg/dL (0.2-1.0); TOTAL PROTEIN 8.6 g/dL (6.4-8.2)
[2019-06-12 15:43] LABS: POTASSIUM 2.7 mmol/L (3.5-5.1)
[2019-06-12] MEDS ORDERED: POTASSIUM CHLORIDE 20 MEQ TABLET.ER. PO ONE ×2 (15:45→16:45)
[2019-06-12] MEDS ORDERED: IOHEXOL 300 MG/ML 100ML VIAL. IV ONE (16:00)
[2019-06-12] MEDS ORDERED: CONTRAST GIVEN. MC PRN (16:00)
--- NOTE | 2019-06-12 16:37 | RAD ---
Exam: CT abdomen and pelvis with contrast INDICATION: Left upper quadrant pain TECHNIQUE: Sequential axial images through the abdomen and pelvis obtained following the administration of 75 mL of Omnipaque 300 IV contrast. Sagittal and coronal reformatted images were reconstructed from the axial data and reviewed. Comparisons: None FINDINGS: Heart size is normal. No pericardial effusion. Visualized lung bases are clear. No pleural effusion. Innumerable ill-defined hypoattenuating masses are noted throughout the liver. Largest on the right measures approximately 4.6 x 5.0 cm and largest on the left measures approximately 3.2 x 3.0 cm. No biliary ductal dilatation. Several calcified granulomata are noted within the liver which is stable from prior. Numerous calcific granulomata throughout the spleen is not enlarged. Pancreas, gallbladder and adrenals are unremarkable. Kidneys demonstrate symmetric enhancement. No perinephric inflammation or hydronephrosis. 1 cm simple cyst at the lower pole of the left kidney. No renal or ureteral calculi are identified. Bladder is distended and appears thin walled. Prostate is not enlarged. There is an area of mild wall thickening in the mid transverse colon which may be secondary to nondistention. Remainder of the large and small bowel are unremarkable. Appendix is absent. No free intra-abdominal air or fluid. Abdominal aorta has a normal course and caliber. Abdominal vasculature is patent. Hypoattenuating gastrohepatic lymph node measuring 1 cm in short axis series 2 image 30. No other enlarged intra-abdominal lymph nodes are identified. No suspicious osseous lesions or acute fractures. IMPRESSION: 1. Innumerable 3 to 5 cm ill-defined hypoattenuating masses within the liver. Differential diagnosis includes metastatic disease which is favored versus infectious etiologies. Recommend correlation with any history of malignancy and laboratory markers of infection. No primary malignancy is identified within the abdomen and pelvis. 2. Focal area of wall thickening of the mid transverse colon which may be secondary to nondistention. Recommend correlation with colonoscopy to exclude an underlying malignancy. 3. Hypoattenuating gastrohepatic lymph nodes. In the setting of malignancy these would be favored to be metastatic. Exposure: One or more of the following in the visualized dose reduction techniques were utilized for this examination: 1. Automated exposure control 2. Adjustment of the MA and/or KV according to patient size 3. Use of iterative of reconstructive technique Electronically signed by: Twan Villa MD (06/12/2019 4:34 PM) [facility]
[2019-06-12 18:01] LABS: BILIRUBIN,URINE NEGATIVE (NEG); CLARITY,URINE CLEAR; COLOR,URINE YELLOW; NITRITE,URINE NEGATIVE (NEG); PH,URINE 6.5; PROTEIN,URINE NEGATIVE (NEG-TRACE)
[2019-06-12 18:07] LABS: BARBITURATES NEG (NEG); BENZODIAZEPINES NEG (NEG); CANNABINOIDS NEG (NEG); COCAINE NEG (NEG); METHADONE NEG (NEG); OPIATES NEG (NEG); PHENCYCLIDINE NEG (NEG)
[2019-06-12 18:08] LABS: AMPHETAMINE/METHAMPHETAMINE NEG (NEG)
[2019-06-12 18:09] LABS: BACTERIA,URINE 0 /HPF (0-FEW); RBC,URINE OCC /HPF (0-2); SQUAMOUS EPITHELIAL CELL,UR OCC /LPF
--- NOTE | 2019-06-12 19:28 | PHYS DOC ---
Past Medical History Past Medical History: Diverticulitis, Hypertension, Unknown Additional Past Medical Histor: Peptic ulcer (KAYLA LOPEZ APRN) Past Surgical History: Appendectomy, Other Additional Past Surgical Histo: LUMPECTOMY (KAYLA LOPEZ APRN) Alcohol Use: Heavy Drug Use: None (KAYLA LOPEZ APRN) Adult General Chief Complaint Chief Complaint: ABDOMINAL PAIN HPI HPI Patient is a 48 year old male with history of hypertension, diverticulitis, who presents to the ED today complaining of 10 out of 10 throbbing intermittent left lower quadrant abdominal pain that he states is chronic but has gotten worse in the last 10 days. Patient denies any nausea, vomiting, diarrhea. He states he has been following up with a specialist for colon Polyps. (KAYLA LOPEZ APRN) Review of Systems Review of Systems Constitutional: Denies fever or chills [] Eyes: Denies change in visual acuity, redness, or eye pain [] HENT: Denies nasal congestion or sore throat [] Respiratory: Denies cough or shortness of breath [] Cardiovascular: No additional information not addressed in HPI [] GI: Reports left lower quadrant abdominal pain, denies nausea, vomiting, bloody stools or diarrhea [] : Denies dysuria or hematuria [] Musculoskeletal: Denies back pain or joint pain [] Integument: Denies rash or skin lesions [] Neurologic: Denies headache, focal weakness or sensory changes [] All other systems were reviewed and found to be within normal limits, except as documented in this note. (KAYLA LOPEZ APRN) Current Medications Current Medications Current Medications Medications (Trade) Dose Ordered Sig/Kimberli Start Time Stop Time Status Last Admin Dose Admin Famotidine (Pepcid Vial) 20 mg 1X ONCE 06/12/19 15:15 06/12/19 15:16 DC 06/12/19 15:52 20 MG Info (CONTRAST GIVEN -- Rx MONITORING) 1 each PRN DAILY PRN 06/12/19 16:00 06/12/19 19:46 DC Iohexol (Omnipaque 300 Mg/ml) 75 ml 1X ONCE 06/12/19 16:00 06/12/19 16:01 DC 06/12/19 16:19 75 ML Morphine Sulfate (Morphine Sulfate) 5 mg 1X ONCE 06/12/19 19:30 06/12/19 19:31 DC 06/12/19 19:24 5 MG Potassium Chloride (Klor-Con) 40 meq 1X ONCE 06/12/19 16:45 06/12/19 16:46 DC 06/12/19 17:16 40 MEQ Sodium Chloride 1,000 ml @ 1,000 mls/hr 1X ONCE 06/12/19 15:15 06/12/19 16:14 DC 06/12/19 15:52 1,000 MLS/HR (DEIDRE HARDEN DO) Allergies Allergies Allergies Coded Allergies Type Severity Reaction Last Updated Verified adhesive Allergy Intermediate RASH 12/09/16 Yes coconut Allergy Intermediate RASH 12/09/16 Yes (DEIDRE HARDEN DO) Physical Exam Physical Exam Constitutional: Well developed, well nourished, no acute distress, non-toxic appearance. [] HENT: Normocephalic, atraumatic, bilateral external ears normal, oropharynx moist, no oral exudates, nose normal. [] Eyes: PERRLA, EOMI, conjunctiva normal, no discharge. [] Neck: Normal range of motion, no tenderness, supple, no stridor. [] Cardiovascular:Heart rate regular rhythm, no murmur [] Lungs & Thorax: Bilateral breath sounds clear to auscultation [] Abdomen: Bowel sounds normal, soft, no tenderness, no masses, no pulsatile masses. [] Skin: Warm, dry, no erythema, no rash. [] Back: No tenderness, no CVA tenderness. [] Extremities: No tenderness, no cyanosis, no clubbing, ROM intact, no edema. [] Neurologic: Alert and oriented X 3, normal motor function, normal sensory function, no focal deficits noted. [] Psychologic: Affect normal, judgement normal, mood normal. [] (KAYLA LOPEZ APRN) Current Patient Data Vital Signs Vital Signs Date Time Temp Pulse Resp B/P (MAP) Pulse Ox O2 Delivery O2 Flow Rate FiO2 06/12/19 19:43 78 111/62 (78) 98 06/12/19 19:24 16 06/12/19 19:00 Room Air 06/12/19 15:00 98.4 98.4 (DEIDRE HARDEN DO) Lab Values Laboratory Tests Test 06/12/19 15:10 06/12/19 17:45 White Blood Count 10.0 x10^3/uL (4.0-11.0) Red Blood Count 4.94 x10^6/uL (4.30-5.70) Hemoglobin 13.4 g/dL (13.0-17.5) Hematocrit 39.5 % (39.0-53.0) Mean Corpuscular Volume 80 fL (79-100) Mean Corpuscular Hemoglobin 27 pg (25-35) Mean Corpuscular Hemoglobin Concent 34 g/dL (31-37) Red Cell Distribution Width 14.1 % (11.5-14.5) Platelet Count 481 x10^3/uL (140-400) H Neutrophils (%) (Auto) 76 % (31-73) H Lymphocytes (%) (Auto) 13 % (24-48) L Monocytes (%) (Auto) 10 % (0-9) H Eosinophils (%) (Auto) 1 % (0-3) Basophils (%) (Auto) 1 % (0-3) Neutrophils # (Auto) 7.6 x10^3/uL (1.8-7.7) Lymphocytes # (Auto) 1.3 x10^3/uL (1.0-4.8) Monocytes # (Auto) 1.0 x10^3/uL (0.0-1.1) Eosinophils # (Auto) 0.1 x10^3/uL (0.0-0.7) Basophils # (Auto) 0.1 x10^3/uL (0.0-0.2) Sodium Level 136 mmol/L (136-145) Potassium Level 2.7 mmol/L (3.5-5.1) *L Chloride Level 93 mmol/L (98-107) L Carbon Dioxide Level 33 mmol/L (21-32) H Anion Gap 10 (6-14) Blood Urea Nitrogen 12 mg/dL (8-26) Creatinine 1.3 mg/dL (0.7-1.3) Estimated GFR (Cockcroft-Gault) 71.3 BUN/Creatinine Ratio 9 (6-20) Glucose Level 116 mg/dL (70-99) H Calcium Level 9.5 mg/dL (8.5-10.1) Total Bilirubin 0.7 mg/dL (0.2-1.0) Aspartate Amino Transferase (AST) 220 U/L (15-37) H Alanine Aminotransferase (ALT) 58 U/L (16-63) Alkaline Phosphatase 405 U/L (46-116) H Total Protein 8.6 g/dL (6.4-8.2) H Albumin 3.2 g/dL (3.4-5.0) L Albumin/Globulin Ratio 0.6 (1.0-1.7) L Lipase 92 U/L (73-393) Ethyl Alcohol Level < 10 mg/dL (0-10) Urine Collection Type Unknown Urine Color Yellow Urine Clarity Clear Urine pH 6.5 Urine Specific [place] 1.025 Urine Protein Negative mg/dL (NEG-TRACE) Urine Glucose (UA) Negative mg/dL (NEG) Urine Ketones (Stick) Negative mg/dL (NEG) Urine Blood Negative (NEG) Urine Nitrite Negative (NEG) Urine Bilirubin Negative (NEG) Urine Urobilinogen Dipstick 4.0 mg/dL (0.2 mg/dL) Urine Leukocyte Esterase Trace (NEG) Urine RBC Occ /HPF (0-2) Urine WBC 1-4 /HPF (0-4) Urine Squamous Epithelial Cells Occ /LPF Urine Bacteria 0 /HPF (0-FEW) Urine Opiates Screen Neg (NEG) Urine Methadone Screen Neg (NEG) Urine Barbiturates Neg (NEG) Urine Phencyclidine Screen Neg (NEG) Urine Amphetamine/Methamphetamine Neg (NEG) Urine Benzodiazepines Screen Neg (NEG) Urine Cocaine Screen Neg (NEG) Urine Cannabinoids Screen Neg (NEG) Urine Ethyl Alcohol Neg (NEG) Laboratory Tests 06/12/19 15:10 Laboratory Tests 06/12/19 15:10 (DEIDRE HARDEN DO) EKG EKG [] (KAYLA LOPEZ APRN) Radiology/Procedures Radiology/Procedures []PROCEDURE: CT ABD PELV W/ IV CONTRST ONLY Exam: CT abdomen and pelvis with contrast INDICATION: Left upper quadrant pain TECHNIQUE: Sequential axial images through the abdomen and pelvis obtained following the administration of 75 mL of Omnipaque 300 IV contrast. Sagittal and coronal reformatted images were reconstructed from the axial data and reviewed. Comparisons: None FINDINGS: Heart size is normal. No pericardial effusion. Visualized lung bases are clear. No pleural effusion. Innumerable ill-defined hypoattenuating masses are noted throughout the liver. Largest on the right measures approximately 4.6 x 5.0 cm and largest on the left measures approximately 3.2 x 3.0 cm. No biliary ductal dilatation. Several calcified granulomata are noted within the liver which is stable from prior. Numerous calcific granulomata throughout the spleen is not enlarged. Pancreas, gallbladder and adrenals are unremarkable. Kidneys demonstrate symmetric enhancement. No perinephric inflammation or hydronephrosis. 1 cm simple cyst at the lower pole of the left kidney. No renal or ureteral calculi are identified. Bladder is distended and appears thin walled. Prostate is not enlarged. There is an area of mild wall thickening in the mid transverse colon which may be secondary to nondistention. Remainder of the large and small bowel are unremarkable. Appendix is absent. No free intra-abdominal air or fluid. Abdominal aorta has a normal course and caliber. Abdominal vasculature is patent. Hypoattenuating gastrohepatic lymph node measuring 1 cm in short axis series 2 image 30. No other enlarged intra-abdominal lymph nodes are identified. No suspicious osseous lesions or acute fractures. IMPRESSION: 1. Innumerable 3 to 5 cm ill-defined hypoattenuating masses within the liver. Differential diagnosis includes metastatic disease which is favored versus infectious etiologies. Recommend correlation with any history of malignancy and laboratory markers of infection. No primary malignancy is identified within the abdomen and pelvis. 2. Focal area of wall thickening of the mid transverse colon which may be secondary to nondistention. Recommend correlation with colonoscopy to exclude an underlying malignancy. 3. Hypoattenuating gastrohepatic lymph nodes. In the setting of malignancy these would be favored to be metastatic. Exposure: One or more of the following in the visualized dose reduction techniques were utilized for this examination: 1. Automated exposure control 2. Adjustment of the MA and/or KV according to patient size 3. Use of iterative of reconstructive technique Electronically signed by: Twan Mary MD (06/12/2019 4:34 PM) [facility] DICTATED and SIGNED BY: TWAN MARY MD DATE: 06/12/19 8730 (KAYLA LPOEZ APRN) Course & Med Decision Making Course & Med Decision Making Pertinent Labs and Imaging studies reviewed. (See chart for details) This is a 48-year-old male patient presenting to the ED today complaining of left lower quadrant abdominal pain that is chronic but does gotten worse in the last 3 weeks. CBC with normal WBC, CMP with potassium of 2.7, patient was given 80 mEq of potassium by mouth in the ED. AST 220, K405. CT of the abdomen and pelvic was noted for a mass in the liver suspicious of metastatic disease. Also noted for focal area of wall thickening of the mid transverse colon which may be secondary to nondistention. Recommend correlation with colonoscopy to exclude an underlying malignancy.Hypoattenuating gastrohepatic lymph nodes. In the setting of malignancy these would be favored to be metastatic. Above results were communicated with the patient, he states his been told he for he has polyps in his colon but he is GI doctor on the [place] side has been following up with them. He states one year he had 3 colonoscopies and they could not find any cancer. He ss requesting another GI doctor on the [place] side so he can follow-up. We provided him Dr. Hussein's numbers . He will follow-up as soon as he can. (KAYLA LOPEZ APRN) Dragon Disclaimer Dragon Disclaimer This electronic medical record was generated, in whole or in part, using a voice recognition dictation system. (KAYLA LOPEZ APRN) Departure Departure Impression: Primary Impression: Abdominal pain Additional Impressions: Hypokalemia Abnormal finding on CT scan Disposition: HOME, SELF-CARE Condition: STABLE Referrals: ROMAIN GARRISON MD (PCP) JOSE HUSSEIN MD follow up as soon as you can Patient Instructions: Abdominal Pain (Nonspecific), Hypokalemia-Brief Additional Instructions: You were evaluated in the emergency room for abdominal pain and noted to have some concerning lesion on the liver as well as colon. Please follow-up with the provided GI doctor for further workup. Scripts Dicyclomine Hcl (DICYCLOMINE HCL) 20 Mg Tablet 1 TAB PO TID, #30 TAB 1 Refill Prov: KAYLA LOPEZ APRN 06/12/19 Potassium Chloride (POTASSIUM CHLORIDE) 20 Meq Tablet.er 20 MEQ PO DAILY, #5 TAB.SR Prov: KAYLA LOPEZ APRN 06/12/19 Attending Signature Attending Signature I have reviewed the PA/MANAGER PATIENT's note and plan of care. I was available for consult ation as needed during the patient's visit in the emergency department. I agree with the clinical impression, plan, and disposition. (DEIDRE HARDEN DO) Problem Qualifiers Primary Impression: Abdominal pain Abdominal location: left lower quadrant Qualified Codes: R10.32 - Left lower quadrant pain KAYLA LOPEZ APRN Jun 12, 2019 19:28 DEIDRE HARDEN DO Jun 16, 2019 10:56
[2019-06-12] MEDS ORDERED: MORPHINE SULFATE 10 MG/ML VIAL. IV ONE (19:30)
[2019-06-12] MEDS ORDERED: POTA20TA82 PO (19:32)
[2019-06-12] MEDS ORDERED: DICY20TA3 PO (19:32)
[2019-06-12 19:43] VITALS: BP 111/62
== END 2019-06-12 19:46 | disposition home or self-care (01) ==
LOC: ER 14:01
DX: R10.32 Left lower quadrant pain (principal); G89.29 Other chronic pain; E87.6 Hypokalemia; R93.5 Abnormal findings on diagnostic imaging of other abdominal regions, including retroperitoneum; I10 Essential (primary) hypertension; Z90.89 Acquired absence of other organs; Z87.11 Personal history of peptic ulcer disease; Z87.19 Personal history of other diseases of the digestive system; F10.20 Alcohol dependence, uncomplicated; Y90.9 Presence of alcohol in blood, level not specified; Z88.8 Allergy status to other drugs, medicaments and biological substances; Z91.018 Allergy to other foods
CPT/HCPCS: 36415; 74177; 80053; 80307; 81001; 83690; 85025; 96374; 96375; 99285; G0480; J2270; J3490; J7030; Q9967